=== PATIENT | male | born 1960 | race Hispanic/Latino ===

== ENCOUNTER 2016-12-17 17:06 | Outpatient (CLI) | payer MEDICARE ==
[2016-12-17 17:18] LABS: Eosinophils % (Auto) 0.3 % (0.0-4.3); Hematocrit 40.5 % (35.5-45.6); Hemoglobin 13.6 gm/dl (11.8-15.2); Mean Corpuscular HGB Conc 34 % (32-34); Mean Corpuscular Hemoglobin 32 pg (28-32); Mean Corpuscular Volume 95 fl (84-94); Platelet Count 299 K/mm3 (140-440); Red Blood Count 4.28 M/mm3 (3.65-5.03); Red Cell Distribution Width 15.9 % (13.2-15.2); White Blood Count 6.9 K/mm3 (4.5-11.0)
[2016-12-17 17:36] LABS: Albumin 3.9 g/dL (3.9-5); Albumin/Globulin Ratio 1.5 %; BUN/Creatinine Ratio 12.85; Bilirubin,Total 0.3 mg/dL (0.1-1.2); Calcium 9.8 mg/dL (8.4-10.2); Chloride 99.6 mmol/L (98-107); Potassium 4.4 mmol/L (3.6-5.0); Total Protein 6.5 g/dL (6.3-8.2)
== END 2016-12-17 17:07 | disposition home or self-care (01) ==
LOC: LABHHL 17:06
PROVIDERS: ATTEND Internal Medicine Nephrology
DX: Z51.81 Encounter for therapeutic drug level monitoring (principal); Z48.22 Encounter for aftercare following kidney transplant; I13.2 Hypertensive heart and chronic kidney disease with heart failure and with stage 5 chronic kidney disease, or end stage renal disease; N18.6 End stage renal disease
CPT/HCPCS: 36415; 80053; 82550; 85025